=== PATIENT | male | born 1945 | race Caucasian/White ===

== ENCOUNTER 2021-06-28 16:15 | Emergency (ER) | payer MEDICARE, OTHER ==
[~2021-06-28] VITALS: Ht 177.8 cm; Wt 99.8 kg
[~2021-06-28 16:15] MED LIST: ASPIRIN EC81 MG PO; CLARITIN10 MG PO; HYDROCODONE/APA1 TAB PO; MACROBID100 MG PO; OLMESARTAN-HCT1 EACH PO; PERCOCET 5-3251 EACH PO; PROAIR HFA8.5 GM INH; SINGULAIR10 MG PO; TOPROL XL 25MG25 MG PO; XARELTO15 MG PO; ZOCOR20 MG PO; ZOFRAN4 MG PO
[2021-06-28 19:26] LABS: BASOPHIL 0.6 % (0-2); EOSINOPHIL 0.6 % (0-7); HCT 45.7 % (42.0-52.0); HGB 15.3 g/dl (13.2-18.0); LYMPHOCYTE 17.9 % (15-48); MCH 30.2 pg (25.0-31.0); MCHC 33.5 g/dL (32.0-36.0); MCV 90.3 fL (78.0-100.0); MONOCYTE 8.2 % (0-12); MPV 10.1 fL (6.0-9.5); NEUTROPHIL 72.4 % (41-80); NRBC 0; PLT 238 K/uL (150-400); RBC 5.06 M/uL (4.70-6.00); RDW 12.7 % (11.5-14.0); WBC 6.6 K/uL (4.0-10.5)
[2021-06-28 19:27] LABS: BILIRUBIN 2+ mg/dL (NEGATIVE); BLOOD TRACE-INTACT Ery/uL (NEGATIVE); CLARITY CLEAR (CLEAR); COLOR YELLOW (YELLOW); GLUCOSE (U) NORMAL (NORMAL); LEUKOCYTES NEGATIVE Leu/uL (NEGATIVE); NITRITE NEGATIVE (NEGATIVE); PROTEIN 1+ mg/dL (NEGATIVE); SPECIFIC GRAVITY 1.025 (1.001-1.030)
[2021-06-28 19:30] LABS: SQUAMOUS EPITHELIAL CELLS RARE
[2021-06-28 19:47] LABS: BUN/CREAT RATIO (CALC) 10.1 RATIO; CREATININE 1.09 mg/dL (0.67-1.17); POTASSIUM 3.9 mmol/L (3.5-5.1)
[2021-06-28] MEDS ORDERED: PERCOCET 5-3251 EACH PO (20:06)
[2021-06-28] MEDS ORDERED: SENNA-S 8.6-501 EACH PO (20:12)
== END 2021-06-28 20:29 | disposition home or self-care (01) ==
LOC: FER 16:15
PROVIDERS: Internal Medicine
DX: M54.5 Low back pain (principal); C79.51 Secondary malignant neoplasm of bone; Z88.1 Allergy status to other antibiotic agents
CPT/HCPCS: 36415; 71045; 80048; 81001; 84145; 85025

== ENCOUNTER 2021-09-01 12:48 | Emergency (ER) | payer MEDICARE, OTHER ==
[~2021-09-01 12:48] MED LIST changes: +SENNA-S 8.6-501 EACH PO
[2021-09-01 14:21] LABS: BILIRUBIN NEGATIVE (NEGATIVE); BLOOD NEGATIVE Ery/uL (NEGATIVE); CLARITY CLEAR (CLEAR); COLOR YELLOW (YELLOW); GLUCOSE (U) NORMAL (NORMAL); LEUKOCYTES NEGATIVE Leu/uL (NEGATIVE); NITRITE NEGATIVE (NEGATIVE); PROTEIN NEGATIVE (NEGATIVE); UROBILINOGEN 0.2 mg/dL (0.2-1.0)
[2021-09-01 14:22] LABS: BASOPHIL 0.9 % (0-2); EOSINOPHIL 0.6 % (0-7); HCT 42.5 % (42.0-52.0); HGB 13.2 g/dl (13.2-18.0); LYMPHOCYTE 36.1 % (15-48); MCH 30.3 pg (25.0-31.0); MCHC 31.1 g/dL (32.0-36.0); MCV 97.5 fL (78.0-100.0); MONOCYTE 9.3 % (0-12); MPV 9.7 fL (6.0-9.5); NEUTROPHIL 51.4 % (41-80); NRBC 0; PLT 280 K/uL (150-400); RBC 4.36 M/uL (4.70-6.00); RDW 17.5 % (11.5-14.0); WBC 6.3 K/uL (4.0-10.5)
[2021-09-01 14:30] LABS: INR 1.46 (0.9-1.2); PTT 39.7 SECONDS (24.4-34.7)
[2021-09-01 14:43] LABS: ALBUMIN 3.5 g/dL (3.4-5.0); ALKALINE PHOSHATASE 149 U/L (46-116); ALT 13 U/L (16-63); AST 18 U/L (15-37); BILIRUBIN - TOTAL 1.5 mg/dL (0.2-1.0); BUN 8 mg/dL (7-18); BUN/CREAT RATIO (CALC) 8.5 RATIO; CHLORIDE 107 mmol/L (98-107); CO2 (BICARBONATE) 26 mmol/L (21-32); CREATININE 0.94 mg/dL (0.67-1.17); GLOBULIN (CALCULATION) 3.3 g/dL; GLUCOSE 90 mg/dL (74-106); TOTAL PROTEIN 6.8 g/dL (6.4-8.2)
[2021-09-01 14:50] LABS: C-REACTIVE PROTEIN < 0.20 mg/dL (<=0.90)
== END 2021-09-01 17:44 | disposition home or self-care (01) ==
LOC: FER 12:48
PROVIDERS: Emergency Medicine
DX: N32.89 Other specified disorders of bladder (principal); R31.9 Hematuria, unspecified
CPT/HCPCS: 36415; 72131; 72192; 80053; 81003; 84145; 85025; 85610; 85730; 86140